=== PATIENT | female | born 1955 | race African-American/Black ===

== ENCOUNTER 2017-05-02 09:11 | Emergency (ER) | payer BC, OTHER ==
[2017-05-02 09:22] VITALS: BP 143/91; TEMP 98.1; BMI 37.4
--- NOTE | 2017-05-02 09:26 | PDOC ---
History of Present Illness - General Chief Complaint: Edema Stated Complaint: LT ELBOW PAIN Time Seen by Provider: 05/02/17 09:24 History Source: Patient Exam Limitations: No Limitations - History of Present Illness Initial Comments: CHIEF COMPLAINT: 61 y/o afebrile female with PMH HTN, HLD, lupus c/o atraumatic left elbow swelling x 2 weeks. HISTORY OF PRESENT ILLNESS: The patient states her elbow feels warm and is swollen. She has no idea how it happened but has been present for 2 weeks. She denies f/c, n/v/d, pain to affected area, trauma to affected area, numbness/ tingling in affected extremity. Vital signs on arrival are notable for pulse of 101. REVIEW OF SYSTEMS: GENERAL/CONSTITUTIONAL: No fever/chills. No weakness. No weight change. MUSCULOSKELETAL: +left elbow pain. No neck or back pain. SKIN: No rash or easy bruising. NEUROLOGIC: No headache, vertigo, loss of consciousness, or loss of sensation. PHYSICAL EXAM: VITAL_SIGNS: within normal limits GENERAL_APPEARANCE: alert, cooperative, no obvious discomfort. She is morbidly obese MENTAL_STATUS: speech clear, oriented X 3, responds appropriately to questions. NEURO: motor intact and sensory intact in injured extremity. EXTREMITIES: Left elbow with superficial edema that is not TTP but is warm. Full flexion, extension, pronation and supination of left forearm. No erythema or streaking. SKIN: warm, dry, good color. Past History - Past Medical History Allergies/Adverse Reactions: Allergies Allergy/AdvReac Type Severity Reaction Status Date / Time No Known Allergies Allergy Verified 05/02/17 09:17 Home Medications: Ambulatory Orders Sulfamethoxazole/Trimethoprim [Bactrim Ds -] 1 tab PO BID #20 tablet 05/02/17 Diabetes: Yes HTN: Yes Hypercholesterolemia: Yes Other medical history: Lupus - Surgical History Cardiac Surgery: Yes (2 stents) Cholecystectomy: Yes - Psycho/Social/Smoking Cessation Hx Suicidal Ideation: No Smoking History: Never smoked Information on smoking cessation initiated: No Hx Alcohol Use: No Drug/Substance Use Hx: No Substance Use Type: None *Physical Exam - Vital Signs Last Vital Signs Temp Pulse Resp BP Pulse Ox 98.1 F 101 H 20 143/91 97 05/02/17 09:18 05/02/17 09:18 05/02/17 09:18 05/02/17 09:18 05/02/17 09:18 Medical Decision Making - Medical Decision Making A/P: 61 y/o afebrile female with left olecranon bursitis. Will discharge to home with rx for bactrim. Instructed her to take as prescribed. Instructed her to take her NSAIDs daily like she usually does. Provided an ANASTACIO bandage and sling and instructed her to follow RICE instructions. Suggested she f/u with Dr. Newman in 1 week if no improvement and return to the ER with any worsening or concerning symptoms including fever. The patient is no longer tachycardic. The patient verbalizes understanding of all instructions, has no further questions and is awaiting discharge. *DC/Admit/Observation/Transfer Diagnosis at time of Disposition: Olecranon bursitis of left elbow - Discharge Dispostion Disposition: HOME Condition at time of disposition: Good - Prescriptions Prescriptions: Sulfamethoxazole/Trimethoprim [Bactrim Ds -] 1 tab PO BID #20 tablet - Referrals Referrals: Denise Romo MD [Primary Care Provider] - Harris Newman MD [Staff Physician] - 1 week - Patient Instructions Printed Discharge Instructions: DI for Elbow Bursitis, How To Perform RICE ( Rest, Ice, Compress, Elevate) Additional Instructions: Discharge Instructions: -An antibiotic has been called to your pharmacy; please start it today and take as prescribed -Continue taking Motrin or Ibuprofen as you have been taking it for pain/ swelling -Use ANASTACIO bandage and sling to prevent further injury -Follow up with Dr. Newman in 1 week if no improvement in symptoms -Return to the ER with any worsening or concerning symptoms - Post Discharge Activity Work/School Note: Back to Work
[2017-05-02 10:11] VITALS: PULSE 93
== END 2017-05-02 10:31 | disposition home or self-care (01) ==
LOC: JERFT 09:11
DX: M70.22 Olecranon bursitis, left elbow (principal); M32.9 Systemic lupus erythematosus, unspecified; I10 Essential (primary) hypertension; E11.9 Type 2 diabetes mellitus without complications; E78.00 Pure hypercholesterolemia, unspecified; Z95.5 Presence of coronary angioplasty implant and graft
CPT/HCPCS: 99281-25

== ENCOUNTER 2018-11-06 09:14 | Emergency (ER) | payer OTHER ==
--- NOTE | 2018-11-06 09:20 | PDOC ---
History of Present Illness - General Chief Complaint: Pain Stated Complaint: RIGHT EAR ACHE - History of Present Illness Initial Comments: 63 yo F with PMH of HTN, HLD, well-controlled lupus, MS s/p 2 stents presenting with ear pain. Patient states this pain started 3 days ago and is rated 10/10. No recent trauma to the area. This has never happened before. No recent antibiotic use. She also endorses submandibular soft tissue tenderness, but no tooth pain, nasal discharge, sore throat, or trouble swallowing. Ear pain worsens with movement or laying down on that side. Pain is controlled with tylenol which she has taken every six hours. Patient presented to an urgent care on Monday, but was only instructed to take [id number] drops for ear wax. She is unable to specify whether the ear drops have helped evacuate wax but does not no improvement in her pain. Did not get a flu shot this season. 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 No fevers, chills, chest pain, or shortness of breath. Past History - Past Medical History Allergies/Adverse Reactions: Allergies Allergy/AdvReac Type Severity Reaction Status Date / Time No Known Allergies Allergy Verified 11/06/18 09:15 Home Medications: Ambulatory Orders Acetaminophen [Tylenol] 325 mg PO PRN 11/06/18 Albuterol Sulfate Inhaler - [Ventolin HFA Inhaler -] 1 puff IN PRN 11/06/18 Amlodipine Besylate [Norvasc -] 10 mg PO DAILY 11/06/18 Amoxicillin - [Amoxicillin 500mg Capsule -] 500 mg PO TID #21 capsule 11/06/18 Benzonatate 200 mg PO PRN 11/06/18 Diclofenac Sodium 75 mg PO DAILY 11/06/18 Ergocalciferol (Vitamin D2) [Vitamin D2] 50,000 unit PO WEEKLY 11/06/18 Glipizide 10 mg PO DAILY 11/06/18 Hydrochlorothiazide [Hctz -] 25 mg PO DAILY 11/06/18 Methocarbamol [Robaxin -] 500 mg PO TID #30 tablet 11/06/18 Metoprolol Succinate 25 mg PO DAILY 11/06/18 Pravastatin Sodium 20 mg PO DAILY 11/06/18 Vitamin B Complex 1 each PO DAILY 11/06/18 Diabetes: Yes HTN: Yes Hypercholesterolemia: Yes - Surgical History Cardiac Surgery: Yes (2 stents) Cholecystectomy: Yes - Suicide/Smoking/Psychosocial Hx Smoking History: Never smoked Hx Alcohol Use: No Drug/Substance Use Hx: No Substance Use Type: None Review of Systems - Review of Systems Comments:: Constitutional: no fever, no chills HEENT: +ear pain, no dysphagia Cardiovascular: no chest pain, no palpitations Respiratory: no cough, no shortness of breath Gastrointestinal: no abdominal pain, no nausea, no vomiting Genitourinary: no dysuria, no frequency Musculoskeletal: no myalgia, no arthralgia Skin: no rash, no itching Neurologic: no headache, no dizziness *Physical Exam - Physical Exam Comments: General: Awake, alert, and fully oriented, in no acute distress Head: No signs of trauma Eyes: EOMI, sclera anicteric ENT: Moist mucus membranes, cerumen impaction bilaterally, submandibular tenderness on the right; skin hypopigmentation on bilateral ears (patient attributes to lupus) Neck: Normal ROM, supple Lungs: Lungs clear, Normal breath sounds Cardio: Regular rhythm, S1 and S2 present Abdomen: Soft, nontender. Extremities: Normal range of motion, Distal pulses present SKIN: Warm, Dry, normal turgor Neurologic: Cranial nerves II through XII grossly intact. Normal speech Medical Decision Making - Medical Decision Making 63 yo F with PMH of HTN, HLD, Lupus, MS s/p 2 stents presenting with ear pain. Presentation consistent with otitis media. Will treat with amoxicillin 500 TID x 7 days. Motrin for pain as patient has taken tylenol this AM. Referral to ENT Patient discharged. 11/06/18 13:06 *DC/Admit/Observation/Transfer Diagnosis at time of Disposition: Otitis media - Discharge Dispostion Disposition: HOME Condition at time of disposition: Stable - Prescriptions Prescriptions: Amoxicillin - [Amoxicillin 500mg Capsule -] 500 mg PO TID #21 capsule Methocarbamol [Robaxin -] 500 mg PO TID #30 tablet - Referrals Referrals: River Gannon MD [Staff Physician] - - Patient Instructions Printed Discharge Instructions: Middle Ear Infection Additional Instructions: You came into the ED for ear pain Antibiotics prescription has been sent to your pharmacy. Amoxicillin, take 1 tablet three times a day for seven days You can take [id number] tylenol or motrin for pain. Follow the instructions on the medication bottle. We have referred you to an ENT specialist. Call and make an appointment if your symptoms do not improve in 3-5 days. Follow-up with you primary care physician in 5-7 days to discuss this ED visit and to further evaluate your earache. Your care is not complete until you do so. Call and make an appointment. Immediate medical attention is required if you have: you develop worsening pain , high fevers, or any new or concerning symptoms. If you think you are having an emergency, call for emergency medical services or present to the emergency department right away. - Post Discharge Activity Forms/Work/School Notes: Back to Work
--- NOTE | 2018-11-06 09:29 | PDOC ---
Attending Attestation - Resident Resident Name: Vilma Juárez - ED Attending Attestation I have performed the following: I have examined & evaluated the patient, The case was reviewed & discussed with the resident, I agree w/resident's findings & plan - HPI HPI: 11/06/18 09:59 Pt has right ear pain and right submandibular pain and right side of head pain. 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 Pt hasn't had an ear infection in years. She has a hx of lupus. She went to a doctor's office and they recommended meds for her cerumen impaction. No other complaints. No fevers. No dizziness. 11/06/18 11:09 Pt has cerumen impaction. Cleared in the ER; right TM is darker and looks possibly consistent with OM. - Physicial Exam PE: 11/06/18 11:10 Agree with resident exam. Bilat ears ceruman impaction; cleared in the ER. - Medical Decision Making 11/06/18 11:[address] Gannon; amoxil TID; motrin and robaxin for neck spasm/strain.
[2018-11-06 09:39] VITALS: BP 148/91; PULSE 102; TEMP 98.3; BMI 34.8
[2018-11-06] MEDS ORDERED: AMOXICILLIN 500 MG CAPSULE (FP) PO ONE (09:45)
[2018-11-06] MEDS ORDERED: IBUPROFEN 600 MG TABLET (FP) PO ONE ×2 (09:45→10:07)
== END 2018-11-06 11:23 | disposition home or self-care (01) ==
LOC: FER 09:14
DX: H92.09 Otalgia, unspecified ear (principal); H66.90 Otitis media, unspecified, unspecified ear; I10 Essential (primary) hypertension; E78.5 Hyperlipidemia, unspecified; I25.2 Old myocardial infarction; M32.9 Systemic lupus erythematosus, unspecified
CPT/HCPCS: 99281-25